=== PATIENT | female | born 1960 | race Caucasian/White ===

== ENCOUNTER 2019-03-21 11:26 | Outpatient (CLI) | payer MEDICARE, MEDICAID | END 2019-03-21 23:59 | disposition home or self-care (01) | LOC: RAD 11:26 | PROVIDERS: ATTEND Psychiatry & Neurology Neurology | DX: R20.2 Paresthesia of skin (principal); R42 Dizziness and giddiness; R40.0 Somnolence; Z86.73 Personal history of transient ischemic attack (TIA), and cerebral infarction without residual deficits; Z87.891 Personal history of nicotine dependence | CPT/HCPCS: 95816 ==